=== PATIENT | female | born 1990 | race Caucasian/White ===

== ENCOUNTER → 2016-10-03 | Outpatient (CLI) | payer BC | LOC: EMS 15:17 | DX: Z53.20 Procedure and treatment not carried out because of patient's decision for unspecified reasons (principal) ==

== ENCOUNTER 2016-10-15 19:07 | Outpatient (CLI) | payer BC ==
[~2016-10-15] VITALS: Ht 167.6 cm; Wt 84.0 kg
--- NOTE | 2016-10-15 19:15 | NUR ---
Presents to OB upon suggestion of Dr. Toro. States at routine OB appt this past Sunday, there was no heart rate found. US was done and impression was that fetus had at approx 9 weeks gestation. She is currently 11.6 weeks gestation today. Was given Misprostol for outpatient management of expulsion. Took as directed but states experienced nausea and extreme pain and was not able to tolerate further treatment at home. Called Dr. Toro at this time and was encouraged to come to hospital. Dr. Aparicio, as OB nurse infection control, was notified of her presentation and came to evaluate patient. 2044 - Following US, Dr. Aparicio discussed care options with patient and her family. Will go home to continue outpatient management. Accompanied to lab for Type and Screen before discharge to home. Written instructions provided.
[2016-10-15 19:30] VITALS: BP 128/68
--- NOTE | 2016-10-15 20:28 | Progress Note-A/P (E) ---
Progress Note Subjective Subjective 26 y/o with missed AB at approx 9 weeks by U/S last week. She saw Dr. Lozano, and they discussed expectant management until today, then misoprostol today. She took a dose of vaginal 400mcg and had overwhelming nausea and cramping. She called Dr. Toro and he had her come in to discuss options. Since coming in she has had a little spotting, but pain much better, really resolved at this point. She did take hydrocodone with no improvement, only worsened nausea. She was hot and overwhelmed and came in. Objective Current Medications PNV daily General Awake, alert, oriented to person, place, and situation. NAD at present HEENT EOMI, PERRL CV RRR, S1 S2 audible Lungs Clear No rales, rhonchi or wheezes Abdomen Soft non distended, no tenderness to palpation, no masses Extremities No edema Integumentary No unusual findings Neuro No focal motor neuro deficits Impressions Bedside U/S shows uterine contents low in uterus, no obvious pole at this point. All components smaller than 2cm in length. Assessment Missed AB. We discussed current ultrasound findings, and expectations for medical management at home vs evacuation in the AM. We did discuss admission and IV fluids and pain and anti-emetics, but cramping and discomfort will still be present if we give medication here. Plan Discharge home. Plans to do another dose at home, premed with hydrocodone and a snack. Bleeding and pain precautions reviewed. She may return to ER if overwhelmed, or call my office in the am if not successful and desires evacuation. REID HORN MD Oct 15, 2016 20:28
[2016-10-16] MEDS ORDERED: [UNRECOGNIZED DRUG - CODE] PV (06:24)
[2016-10-16] MEDS ORDERED: HYDR-3811 PO (06:24)
== END 2016-10-15 20:45 | disposition home or self-care (01) ==
LOC: OBGOP 19:07 → OB 19:08 → OBGOP 20:45
PROVIDERS: ATTEND Obstetrics & Gynecology
DX: O02.1 Missed abortion (principal); Z3A.11 11 weeks gestation of pregnancy
CPT/HCPCS: 86850; 86900; 86901; 99201